=== PATIENT | male | born 1955 | race Caucasian/White ===

== ENCOUNTER 2016-10-09 11:00 | Inpatient (IN) | payer OTHER ==
[2016-10-05 11:13] LABS: ASCORBIC ACID (UR NOT ORDER) NEG (NEG); BILIRUBIN, URINE NEGATIVE (NEG); KETONE, URINE TRACE MG/DL (NEG); LEUKOCYTE ESTERASE(NOT OR NEG (NEG); WBC (NOT ORDERED) (RFLEX) 1 (0-5)
[2016-10-05 11:20] LABS: BASOPHILS 0.1 %; BASOPHILS ABSOLUTE 0.01 10/3/uL (0.0-0.16); EOSINOPHILS 1.2 %; EOSINOPHILS ABSOLUTE 0.09 10/3/uL (0.0-0.53); HEMOGLOBIN 12.4 g/dL (13.6-17.8); IMMATURE GRANULOCYTES 0.4 %; IMMATURE GRANULOCYTES ABSOLUTE 0.03 10/3/uL (0.0-0.11); LYMPHOCYTES 29.7 %; LYMPHOCYTES ABSOLUTE 2.21 10/3/uL (0.67-4.30); MEAN CORPUS HGB CONC 33.3 g/dL (32.0-36.0); MEAN CORPUSCULAR HEMOGLOB 31.4 pg (26.0-34.0); MEAN PLATELET VOLUME 11.2 fL (9.2-13.0); MONOCYTES 7.7 %; MONOCYTES ABSOLUTE 0.57 10/3/uL (0.21-1.20); NEUTROPHILS 60.9 %; NEUTROPHILS ABSOLUTE 4.52 10/3/uL (2.02-8.40); PLATELET COUNT 137 10/3/uL (150-400); RBC DISTRIBUTION WIDTH 13.2 % (12.0-16.0); RED CELL COUNT 3.95 10/6/uL (4.7-6.1); WHITE BLOOD CELLS 7.4 10/3/uL (4.5-10.5)
[2016-10-05 11:25] LABS: HEMATOCRIT 37.2 % (40.0-51.0); MANUAL DIFF NO %; MEAN CORPUSCULAR VOLUME 94.2 fL (80-100)
[2016-10-05 11:28] LABS: PROTIME (NOT ORD) 13.5 SEC (12.0-14.5)
[2016-10-05 11:39] LABS: CALCIUM, SERUM 9.3 MG/DL (8.5-10.4); CHLORIDE, SERUM 104 MMOL/L (96-112); CO2 (CARBON DIOXIDE) 27 MMOL/L (24-34); CREATININE 0.96 MG/DL (0.70-1.30); GFR AFRICAN AMERICAN 101 ML/MIN (>=60); GFR NON AFRICAN AMERICAN 87 ML/MIN (>=60); POTASSIUM, SERUM 4.5 MMOL/L (3.5-5.3); SGOT(AST) 14 U/L (5-40); SGPT(ALT) 20 U/L (5-65); SODIUM, SERUM 140 MMOL/L (135-148); TOTAL BILIRUBIN 0.6 MG/DL (0-1.2); TOTAL PROTEIN 6.9 G/DL (6.0-8.5)
[2016-10-05 11:40] LABS: A/G RATIO 1.4 (0.7-1.9); ALKALINE PHOSPHATASE 61 U/L (45-117); BUN (BLOOD UREA NITROGEN) 11 MG/DL (6-23); GLOBULIN 2.9 G/DL (2.5-4.1); GLUCOSE, SERUM 147 MG/DL (60-99)
--- NOTE | ~2016-10-09 | OP ---
Record Of Operation [facility] [address] [place]. [address] NAME: CELI HARPER : 59 STATUS : ADM IN PAT#: [id number] AGE: 60 ADM/REG DATE : 10/09/16 MR#: [id number] REPORT SERV DATE: 10/09/16 DICTATED BY: MAHSA FU DATE: 10/09/16 REPORT STATUS : Draft TRANSCRIBED BY: MODL DATE: 10/09/16 DATE OF PROCEDURE: 10/09/2016 PREOPERATIVE DIAGNOSIS: Left periprosthetic patellar fracture. POSTOPERATIVE DIAGNOSIS: Left periprosthetic patellar fracture. PROCEDURE: Open reduction and internal fixation. SHOULDER BONER: See chart. DESCRIPTION OF PROCEDURE: The patient was taken to the operating room and placed supine on the table in normal fashion without incident. General anesthetic was induced per the anesthesiologist. The patient was carefully positioned, padded, prepped, and draped in a sterile fashion. Sharp dissection was made through the old longitudinal incision after exsanguination and elevation of the tourniquet. Sharp medial arthrotomy was made. The patellar fracture was seen to be transverse approximately the proximal 1/3rd. The distal 2/3rd was still well attached to the patellar component. After considering options, because the patellar component was still so well fixed distally, I opted to debride some of the granulation tissue in the fracture site and reapproximate the fragment, which was done anatomically. Guidewires from the four cannulated screw set were then passed across the fracture site. This was followed by a depth gauge and drill and screw placement. Tightening these screws down over small washers (4.0 cannulated screws) gave excellent fixation. I also threaded an 18-gauge wire through each and tightened it over itself and these were tightened and cut short, and the wire ends buried. I took an additional sternal wire and wound this around the patella to give a further cerclage fixation. This was tightened and wound, cut short and buried. This appeared to give excellent fixation. Wound was irrigated, closed, and dressed sterilely. The patient awakened and taken to the postanesthesia care unit without incident. COMPLICATIONS: None. SPECIMENS: None. ESTIMATED BLOOD LOSS: Trace. WTB/MODL Carla Fu M.D. / [id number] CC: Record Of Operation [address] [address] NAME: CELI HARPER : 59 STATUS : ADM IN PAT#: [id number] AGE: 60 ADM/REG DATE : 10/09/16 MR#: [id number] REPORT SERV DATE: 10/09/16 DICTATED BY: MAHSA FU DATE: 10/09/16 REPORT STATUS : Draft TRANSCRIBED BY: MODL DATE: 10/09/16 Carla Fu M.D.
[~2016-10-09 11:00] MED LIST: AMB10 PO; ASAB PO; B1100 PO; C5 PO; CEFAZ1 IV; COUMADIN; CYMBALTA30 PO; CYMBALTA60 PO; DSS PO; DURA12 TOP; FLEX PO; FLOMAX4 PO; FOLIC PO; GLUCOPHAGE1000 MG PO; GLUCPH PO; HABIT21 TOP; HUMALOG SC; HUMALOGPEN SC; KLONO1 PO; KLONO5 PO; KLOR-CON M2020 MEQ PO; LEVEMFLXPN SC; LEVEMIR SC; LOTE20 PO; LYRICA25 PO; MELATONIN5 M1 PO; MIRALAXPKT PO; NEUR300 PO; NEUR600 PO; NICODERM C21 MG/241 TOP; NORCO1 TA1 PO; NORCO1 TA2 PO; NORV5 PO; NOVOLOG SC; NOVOLOGMIX SC; NYS500UDL PO; OXYCOD PO; OXYCON10 PO; P10 PO; PCET PO; PEP20 PO; PERCOCET1 TA2 PO; PERCOCET1 TA4 PO; PRAVACHOL40 MG PO; PRILO PO; PRILOSEC40 MG PO; PRIN5 PO; REG5 PO; SENTAB PO; SEROQUEL1C PO; SLOWMAG PO; VITAMIN B-121000 MC1 SL; Z300 PO
[2016-10-10 05:21] LABS: INTERNATIONAL NORMAL RATI 1.1 UNITS (-); PROTIME (NOT ORD) 14.3 SEC (12.0-14.5)
[2016-10-10 05:26] LABS: HEMATOCRIT 34.3 % (40.0-51.0); HEMOGLOBIN 11.3 g/dL (13.6-17.8)
[2016-10-10 05:27] LABS: BUN (BLOOD UREA NITROGEN) 14 MG/DL (6-23); CALCIUM, SERUM 8.5 MG/DL (8.5-10.4); CHLORIDE, SERUM 104 MMOL/L (96-112); CO2 (CARBON DIOXIDE) 28 MMOL/L (24-34); CREATININE 1.05 MG/DL (0.70-1.30); GFR AFRICAN AMERICAN 90 ML/MIN (>=60); GFR NON AFRICAN AMERICAN 78 ML/MIN (>=60); GLUCOSE, SERUM 186 MG/DL (60-99); POTASSIUM, SERUM 4.6 MMOL/L (3.5-5.3); SODIUM, SERUM 139 MMOL/L (135-148)
[2016-10-10] MEDS ORDERED: PCET PO (14:51)
[2016-10-10] MEDS ORDERED: C5 (14:51)
[2016-11-09] MEDS ORDERED: PRAVACHOL40 MG PO (16:11)
[2016-11-09] MEDS ORDERED: PRILO PO (16:11)
[2016-11-12] MEDS ORDERED: CENTRUM PO (17:37)
[2016-11-12] MEDS ORDERED: ASA5GR PO (17:45)
[2016-11-12] MEDS ORDERED: CIP5 PO (17:46)
[2016-11-12] MEDS ORDERED: AUG875 PO (17:47)
[2016-11-12] MEDS ORDERED: PCET PO (17:47)
[2016-11-27] MEDS ORDERED: HALF81 PO (13:50)
[2016-11-27] MEDS ORDERED: CYMBALTA30 PO (13:50)
[2016-11-27] MEDS ORDERED: NOVOLOG SC (13:51)
[2016-11-27] MEDS ORDERED: GLUCOPHAGE1000 MG PO (13:51)
[2016-11-27] MEDS ORDERED: LEVEMFLXPN SC (13:51)
[2016-11-27] MEDS ORDERED: REG5 PO (13:51)
[2016-11-27] MEDS ORDERED: CENTRUM PO (13:52)
[2016-11-27] MEDS ORDERED: PRILO PO (13:52)
[2016-11-27] MEDS ORDERED: NORCO1 TAB PO (13:52)
[2016-11-27] MEDS ORDERED: SEROQUEL1C PO (13:53)
[2016-11-27] MEDS ORDERED: MELATONIN10 M2 PO (13:53)
[2016-11-27] MEDS ORDERED: PRAVACHOL40 MG PO (13:53)
[2016-11-27] MEDS ORDERED: LYRICA25 PO (13:53)
[2016-11-29] MEDS ORDERED: C5 PO (14:17)
[2016-11-29] MEDS ORDERED: OXYCOD PO (14:17)
[2016-12-07] MEDS ORDERED: BEN25 PO (11:56)
[2016-12-08] MEDS ORDERED: DURICEF PO (12:35)
[2016-12-08] MEDS ORDERED: OXYCOD PO (12:35)
[2016-12-08] MEDS ORDERED: C25 (12:35)
== END 2016-10-10 16:24 | disposition home or self-care (01) | DRG 517 ==
LOC: SDC/OF 11:00 → PACU 16:00 → 3SO 17:06
PROVIDERS: Specialist
PROC: 0QSF04Z Reposition Left Patella with Internal Fixation Device, Open Approach (ICD-10-PCS; principal; 2016-10-09 13:00)
DX: M97.12XA Periprosthetic fracture around internal prosthetic left knee joint, initial encounter (principal); F32.9 Major depressive disorder, single episode, unspecified; E11.9 Type 2 diabetes mellitus without complications; F41.9 Anxiety disorder, unspecified; N40.0 Benign prostatic hyperplasia without lower urinary tract symptoms
CPT/HCPCS: 71020; 73560-LT; 80048; 80053; 81001; 82962; 85014; 85018; 85025; 85610; 93005; 97161-GP; 97166-GO; 97530-GP; A9270-GY; C1713; C1769; J0690; J1170; J1885; J2250; J2270; J2370; J2405; J2710; J2795; J3010

== ENCOUNTER 2016-12-31 15:22 | Inpatient (IN) | payer OTHER ==
[~2016-12-31] VITALS: Ht 177.8 cm; Wt 95.2 kg
--- NOTE | ~2016-12-31 | OP ---
Record Of Operation [facility] [address] [place]. [address] NAME: CELI HARPER : 59 STATUS : ADM IN PAT#: [id number] AGE: 61 ADM/REG DATE : 12/31/16 MR#: [id number] REPORT SERV DATE: 01/02/17 DICTATED BY: MAHSA PETTY DATE: 01/02/17 REPORT STATUS : Draft TRANSCRIBED BY: MODL DATE: 01/02/17 DATE OF PROCEDURE: 01/01/2017 PREOPERATIVE DIAGNOSIS: Left knee sepsis. POSTOPERATIVE DIAGNOSIS: Left knee sepsis. PROCEDURE: Left total knee resection and arthroplasty. INDICATIONS: A 61-year-old male approximately two years status post total knee arthroplasty, had a patellar fracture, then fell and tore the wound opened, and it subsequently became infected, and did not respond I and D and repeat fixation. He is indicated for the above procedure. DESCRIPTION OF PROCEDURE: The patient was taken to the operating room and placed supine on the table in normal fashion without incident. General anesthetic was induced per the anesthesiologist. Patient was carefully positioned, padded, prepped, and draped in normal sterile fashion. Left lower extremity was elevated, tourniquet inflated to 350. Sharp dissection was made through the old incision with electrocautery through the fat. Gross purulence was encountered. Sent for culture and Gram stain. Meticulous and extensive debridement of infected synovial tissue was performed as well as old sutures removed. The femoral and tibial components were removed with osteotomes and cement was meticulously debrided from the femur and tibia. The cuts were freshened up with a saw. All surfaces were copiously irrigated with pulsatile lavage. We then completely re-draped and re-gowned with a new setup, irrigated with three more liters of pulsatile lavage. A cement block was then fashioned from premixed antibiotic cement with vancomycin added. It was placed in a doughy phase. The wound was then closed in a layered fashion with minimal tension. The wound was dressed sterilely, patient awakened and taken to postanesthesia care unit without incident. COMPLICATIONS: None. SPECIMENS: None. ESTIMATED BLOOD LOSS: Trace. WTB/MODL Carla Petty M.D. / [id number] CC: Record Of Operation [address] [place] [address] NAME: CELI HARPER : 59 STATUS : ADM IN PAT#: [id number] AGE: 61 ADM/REG DATE : 12/31/16 MR#: [id number] REPORT SERV DATE: 01/02/17 DICTATED BY: MAHSA PETTY DATE: 01/02/17 REPORT STATUS : Draft TRANSCRIBED BY: MODL DATE: 01/02/17 Angella Caban M.D.
[~2016-12-31 15:22] MED LIST changes: +ASA5GR PO; +AUG875 PO; +BEN25 PO; +C25; +C5; +CENTRUM PO; +CIP5 PO; +DURICEF PO; +HALF81 PO; +MELATONIN10 M2 PO; +NORCO1 TAB PO
[2016-12-31] MEDS ORDERED: NORCO1 TA2 PO (19:49)
[2016-12-31] MEDS ORDERED: HUMALOG (19:51)
[2016-12-31] MEDS ORDERED: DURICEF PO (19:51)
[2016-12-31] MEDS ORDERED: FLEX PO (19:52)
[2016-12-31] MEDS ORDERED: CYMBALTA30 PO (19:52)
[2016-12-31] MEDS ORDERED: FERROUS SULF325 M1 PO (19:52)
[2016-12-31] MEDS ORDERED: REG5 PO (19:52)
[2016-12-31] MEDS ORDERED: LEVEMFLXPN PO (19:53)
[2016-12-31] MEDS ORDERED: PRAVACHOL40 MG PO (19:53)
[2016-12-31] MEDS ORDERED: C25 PO (19:53)
[2016-12-31] MEDS ORDERED: SEROQUEL1C PO (19:54)
[2016-12-31] MEDS ORDERED: LYRICA25 PO (19:54)
[2016-12-31] MEDS ORDERED: PRILO PO (19:54)
[2016-12-31] MEDS ORDERED: GLUCOPHAGE1000 MG PO (19:55)
[2016-12-31] MEDS ORDERED: HALF81 PO (19:55)
[2016-12-31] MEDS ORDERED: MULTIVIT/MIN PO (19:56)
[2016-12-31] MEDS ORDERED: MELATONIN10 M2 PO (19:56)
[2016-12-31 20:09] LABS: HEMOGLOBIN 11.1 g/dL (13.6-17.8); MEAN CORPUS HGB CONC 31.7 g/dL (32.0-36.0); MEAN CORPUSCULAR HEMOGLOB 29.3 pg (26.0-34.0); MEAN CORPUSCULAR VOLUME 92.3 fL (80-100); MEAN PLATELET VOLUME 11.8 fL (9.2-13.0); PLATELET COUNT 157 10/3/uL (150-400); RBC DISTRIBUTION WIDTH 15.8 % (12.0-16.0); RED CELL COUNT 3.79 10/6/uL (4.7-6.1); WHITE BLOOD CELLS 7.8 10/3/uL (4.5-10.5)
[2016-12-31 20:11] LABS: MANUAL DIFF YES %
[2016-12-31 20:12] LABS: INTERNATIONAL NORMAL RATI 1.6 UNITS (-)
[2016-12-31 20:15] LABS: PROTIME (NOT ORD) 18.9 SEC (12.0-14.5)
[2016-12-31 20:26] LABS: ALBUMIN 3.8 G/DL (3.5-5.0); BUN (BLOOD UREA NITROGEN) 14 MG/DL (6-23); CALCIUM, SERUM 8.8 MG/DL (8.5-10.4); CHLORIDE, SERUM 102 MMOL/L (96-112); CO2 (CARBON DIOXIDE) 26 MMOL/L (24-34); CREATININE 1.22 MG/DL (0.70-1.30); GFR AFRICAN AMERICAN 75 ML/MIN (>=60); GFR NON AFRICAN AMERICAN 64 ML/MIN (>=60); GLUCOSE, SERUM 165 MG/DL (60-99); SGPT(ALT) 17 U/L (5-65); SODIUM, SERUM 137 MMOL/L (135-148); TOTAL BILIRUBIN 0.6 MG/DL (0-1.2); TOTAL PROTEIN 7.8 G/DL (6.0-8.5)
[2016-12-31 20:28] LABS: ALKALINE PHOSPHATASE 75 U/L (45-117)
[2016-12-31 20:29] LABS: SGOT(AST) 35 U/L (5-40)
[2016-12-31 20:30] LABS: BAND NEUTROPHILS 4 %; EOSINOPHILS 2 %; EOSINOPHILS ABSOLUTE (CALC) 0.16 10/3/uL (0.0-0.53); LYMPHOCYTES 16 %; LYMPHOCYTES ABSOLUTE (CALC) 1.25 10/3/uL (0.67-4.30); MONOCYTES 4 %; MONOCYTES ABSOLUTE (CALC) 0.31 10/3/uL (0.21-1.20); NEUTROPHILS ABSOLUTE (CALC) 6.08 10/3/uL (2.02-8.40); PLATELET ESTIMATE ADQ (ADEQUATE); SEGMENTED NEUTROPHIL (0) 74 %; TOTAL NUCLEATED CELLS 100
[2016-12-31 20:31] LABS: RBC MORPHOLOGY NORM (NORMAL)
[2017-01-02 05:41] LABS: HEMATOCRIT 32.2 % (40.0-51.0); HEMOGLOBIN 10.6 g/dL (13.6-17.8)
[2017-01-02 05:48] LABS: INTERNATIONAL NORMAL RATI 1.3 UNITS (-); PROTIME (NOT ORD) 15.7 SEC (12.0-14.5)
[2017-01-02 05:52] LABS: CALCIUM, SERUM 8.8 MG/DL (8.5-10.4); CHLORIDE, SERUM 98 MMOL/L (96-112); CO2 (CARBON DIOXIDE) 27 MMOL/L (24-34); CREATININE 0.94 MG/DL (0.70-1.30); GFR AFRICAN AMERICAN 102 ML/MIN (>=60); GFR NON AFRICAN AMERICAN 88 ML/MIN (>=60); POTASSIUM, SERUM 4.4 MMOL/L (3.5-5.3); SODIUM, SERUM 133 MMOL/L (135-148)
[2017-01-02 05:53] LABS: BUN (BLOOD UREA NITROGEN) 10 MG/DL (6-23); GLUCOSE, SERUM 241 MG/DL (60-99)
[2017-01-03 05:13] LABS: BASOPHILS 0.2 %; BASOPHILS ABSOLUTE 0.01 10/3/uL (0.0-0.16); EOSINOPHILS 2.3 %; EOSINOPHILS ABSOLUTE 0.14 10/3/uL (0.0-0.53); HEMATOCRIT 29.4 % (40.0-51.0); HEMOGLOBIN 9.4 g/dL (13.6-17.8); IMMATURE GRANULOCYTES 0.3 %; IMMATURE GRANULOCYTES ABSOLUTE 0.02 10/3/uL (0.0-0.11); LYMPHOCYTES ABSOLUTE 1.21 10/3/uL (0.67-4.30); MEAN CORPUSCULAR VOLUME 93.9 fL (80-100); MEAN PLATELET VOLUME 11.3 fL (9.2-13.0); MONOCYTES 15.7 %; MONOCYTES ABSOLUTE 0.95 10/3/uL (0.21-1.20); NEUTROPHILS 61.5 %; NEUTROPHILS ABSOLUTE 3.72 10/3/uL (2.02-8.40); RBC DISTRIBUTION WIDTH 15.7 % (12.0-16.0); RED CELL COUNT 3.13 10/6/uL (4.7-6.1); WHITE BLOOD CELLS 6.1 10/3/uL (4.5-10.5)
[2017-01-03 05:17] LABS: MANUAL DIFF NO %; PLATELET COUNT 105 10/3/uL (150-400)
[2017-01-03 05:21] LABS: INTERNATIONAL NORMAL RATI 1.4 UNITS (-); PROTIME (NOT ORD) 16.6 SEC (12.0-14.5)
[2017-01-03 05:25] LABS: BUN (BLOOD UREA NITROGEN) 9 MG/DL (6-23); CALCIUM, SERUM 8.9 MG/DL (8.5-10.4); CHLORIDE, SERUM 101 MMOL/L (96-112); CO2 (CARBON DIOXIDE) 30 MMOL/L (24-34); CREATININE 0.87 MG/DL (0.70-1.30); GFR AFRICAN AMERICAN 109 ML/MIN (>=60); GFR NON AFRICAN AMERICAN 94 ML/MIN (>=60); POTASSIUM, SERUM 4.6 MMOL/L (3.5-5.3); SODIUM, SERUM 137 MMOL/L (135-148)
[2017-01-03 05:27] LABS: GLUCOSE, SERUM 155 MG/DL (60-99)
[2017-01-04 06:03] LABS: INTERNATIONAL NORMAL RATI 1.5 UNITS (-)
[2017-01-04 06:09] LABS: BUN (BLOOD UREA NITROGEN) 13 MG/DL (6-23); CALCIUM, SERUM 8.8 MG/DL (8.5-10.4); CHLORIDE, SERUM 102 MMOL/L (96-112); CO2 (CARBON DIOXIDE) 26 MMOL/L (24-34); GFR AFRICAN AMERICAN 85 ML/MIN (>=60); GFR NON AFRICAN AMERICAN 73 ML/MIN (>=60); GLUCOSE, SERUM 124 MG/DL (60-99); POTASSIUM, SERUM 4.4 MMOL/L (3.5-5.3); SODIUM, SERUM 137 MMOL/L (135-148)
[2017-01-04 07:29] LABS: BASOPHILS 0.2 %; BASOPHILS ABSOLUTE 0.01 10/3/uL (0.0-0.16); EOSINOPHILS 4.4 %; EOSINOPHILS ABSOLUTE 0.23 10/3/uL (0.0-0.53); HEMATOCRIT 29.8 % (40.0-51.0); HEMOGLOBIN 9.4 g/dL (13.6-17.8); IMMATURE GRANULOCYTES 0.4 %; IMMATURE GRANULOCYTES ABSOLUTE 0.02 10/3/uL (0.0-0.11); LYMPHOCYTES 21.9 %; LYMPHOCYTES ABSOLUTE 1.14 10/3/uL (0.67-4.30); MEAN CORPUS HGB CONC 31.5 g/dL (32.0-36.0); MEAN CORPUSCULAR HEMOGLOB 29.8 pg (26.0-34.0); MEAN CORPUSCULAR VOLUME 94.6 fL (80-100); MEAN PLATELET VOLUME 11.7 fL (9.2-13.0); MONOCYTES 13.5 %; NEUTROPHILS 59.6 %; PLATELET COUNT 129 10/3/uL (150-400); RBC DISTRIBUTION WIDTH 15.6 % (12.0-16.0); RED CELL COUNT 3.15 10/6/uL (4.7-6.1); WHITE BLOOD CELLS 5.2 10/3/uL (4.5-10.5)
[2017-01-04 07:30] LABS: MANUAL DIFF NO %
== END 2017-01-04 20:30 | DRG 464 ==
LOC: ENRESERV → ENRESERVDT → ENRESERVTM → 3SO 17:23 → CDU1 17:23 → SDC/OF 01-01 15:44 → 3SO 01-01 22:28
PROVIDERS: Internal Medicine Infectious Disease; Specialist
PROC: 0SPD0JZ Removal of Synthetic Substitute from Left Knee Joint, Open Approach (ICD-10-PCS; principal; 2017-01-01 17:15)
PROC: 0SHD08Z Insertion of Spacer into Left Knee Joint, Open Approach (ICD-10-PCS; 2017-01-01 17:15)
PROC: 02HV33Z Insertion of Infusion Device into Superior Vena Cava, Percutaneous Approach (ICD-10-PCS; 2017-01-04)
DX: T84.54XA Infection and inflammatory reaction due to internal left knee prosthesis, initial encounter (principal); T81.31XA Disruption of external operation (surgical) wound, not elsewhere classified, initial encounter; F32.9 Major depressive disorder, single episode, unspecified; E11.9 Type 2 diabetes mellitus without complications; E78.5 Hyperlipidemia, unspecified; B95.2 Enterococcus as the cause of diseases classified elsewhere; F41.9 Anxiety disorder, unspecified; Z79.4 Long term (current) use of insulin; Z96.652 Presence of left artificial knee joint; F17.210 Nicotine dependence, cigarettes, uncomplicated; Y79.8 Miscellaneous orthopedic devices associated with adverse incidents, not elsewhere classified; K21.9 Gastro-esophageal reflux disease without esophagitis
CPT/HCPCS: 36569; 71020; 80048; 80053; 82962; 85014; 85018; 85025; 85610; 87015; 87040; 87070; 87075; 87077; 87102; 87116; 87186; 87205; 88300; 88304; 88311; 93005; 97110-GP; 97116-GP; 97162-GP; 97166-GO; 97535-GO; A9270-GY; C1751; J0690; J1170; J1885; J2250; J2270; J2370; J2405; J2540; J2710; J2795; J3010; J3370